=== PATIENT | female | born 1980 | race Caucasian/White ===

== ENCOUNTER 2016-05-29 12:44 | Emergency (ER) | payer OTHER ==
[2016-05-29] MEDS ORDERED: Ibuprofen TAB* 600 MG PO ONE (14:08)
--- NOTE | 2016-05-29 14:13 | UC ---
Knee Pain HPI - HPI Summary HPI Summary: patient slipped on the ice, fell forward and now has pain on the medial and posterior aspect of knee. hard to bear weight. mild swelling, no bruising. happened about 1 hour ago - History of Current Complaint Chief Complaint: UCLowerExtremity Stated Complaint: KNEE INJURY Hx Obtained From: Patient Hx Last Menstrual Period: 05/29/16 ?: No Onset/Duration: Sudden Onset, Lasting Hours Severity Initially: Moderate Severity Currently: Moderate Pain Intensity: 6 Pain Scale Used: 0-10 Numeric Character: Aching, Throbbing Aggravating Factor(s): Movement, Weight Bearing Alleviating Factor(s): Rest Associated Signs And Symptoms: Positive: Swelling Able to Bear Weight: Yes - with pain - Risk Factors Septic Arthritis Risk Factor: Negative Gout Risk Factor: Negative - Allergies/Home Medications Allergies/Adverse Reactions: Allergies Allergy/AdvReac Type Severity Reaction Status Date / Time Erythromycin Allergy Unknown Unknown Verified 06/14/12 08:41 Reaction Details Home Medications: Home Medications Levothyroxine TAB* [Synthroid TAB*] 125 mcg PO 0800 05/29/16 [History Confirmed 05/29/16] PMH/Surg Hx/FS Hx/Imm Hx Previously Healthy: Yes Endocrine History Of: Denies: Diabetes, Thyroid Disease Cardiovascular History Of: Denies: Cardiac Disorders, Hypertension, Congestive Heart Failure Respiratory History Of: Denies: COPD, Asthma, Bronchitis GI/ History Of: Denies: Ulcer Neurological History Of: Reports: Migraine - Surgical History Surgical History: Yes Surgery Procedure, Year, and Place: X 2; T&A - Family History Known Family History: Negative: Cardiac Disease, Hypertension - Social History Alcohol Use: Occasionally Substance Use Type: None Smoking Status (MU): Never Smoked Tobacco Review of Systems Constitutional: Negative Skin: Negative Eyes: Negative ENT: Negative Respiratory: Negative Cardiovascular: Negative Gastrointestinal: Negative Genitourinary: Negative Motor: Negative Neurovascular: Negative Musculoskeletal: Arthralgia, Decreased ROM - right knee, Myalgia Neurological: Negative Psychological: Negative All Other Systems Reviewed And Are Negative: Yes Physical Exam Triage Information Reviewed: Yes Appearance: Well-Appearing, Well-Nourished, Pain Distress Vital Signs: Initial Vital Signs Temp 98.3 F 05/29/16 13:57 Pulse 65 05/29/16 13:57 Resp 18 01/17/17 13:57 BP 131/90 05/29/16 13:57 Pulse Ox 100 05/29/16 13:57 Vital Signs Reviewed: Yes Eye Exam: Normal Eyes: Positive: Conjunctiva Clear ENT Exam: Normal ENT: Positive: Normal ENT inspection, Pharynx normal, TMs normal Dental Exam: Normal Neck exam: Normal Neck: Positive: Supple, Nontender, No Lymphadenopathy Respiratory Exam: Normal Respiratory: Positive: Chest non-tender, Lungs clear, Normal breath sounds Cardiovascular Exam: Normal Cardiovascular: Positive: RRR, No Murmur, Pulses Normal Abdominal Exam: Normal Abdomen Description: Positive: Nontender, No Organomegaly, Soft Bowel Sounds: Positive: Present Musculoskeletal Exam: Normal Musculoskeletal: Positive: No Edema, Strength Limited @ - hard to bear weight, ROM Limited @ - ROM is full but painful, Edema @ - mild swelling on over MCL right knee Neurological Exam: Normal Neurological: Positive: Alert, Muscle Tone Normal Psychological Exam: Normal Skin Exam: Normal Knee Pain Course/Dx - Course Course Of Treatment: hx obtained, exam performed, medication reviewed, xray obtained, motrin given for pain with good relief. mk wrap applied, educated patient on RICE and when to follow up. - Differential Dx/Diagnosis Differential Diagnosis/HQI/PQRI: Cellulitis, Contusion, Dislocation, Sprain, Strain Provider Diagnoses: right MCL sprain, mild Discharge - Discharge Plan Condition: Stable Disposition: HOME Patient Education Materials: Knee Sprain (ED), RICE Therapy (ED) Additional Instructions: Continue to ice, compress and elevated. Advil 400 -600 mg every 4-6 hours. Ice for the next 2 days then switch to heat. rest and stay within pain free activity. Follow up with any increase in pain, swelling or difficulty moving or ambulating.
[2016-05-29 14:32] VITALS: BP 131/90
--- NOTE | 2016-05-29 15:18 | RAD ---
INDICATION: Right knee injury. TECHNIQUE: 4 views of the right knee were obtained. FINDINGS: The bones are in normal alignment. No joint effusion or fracture is seen. Joint spaces appear maintained. IMPRESSION: NO EVIDENCE FOR FRACTURE.
== END 2016-05-29 15:06 | disposition home or self-care (01) ==
LOC: UCEAST 12:44
DX: S83.411A Sprain of medial collateral ligament of right knee, initial encounter (principal); W00.0XXA Fall on same level due to ice and snow, initial encounter; Y93.9 Activity, unspecified; Y92.9 Unspecified place or not applicable; Z88.1 Allergy status to other antibiotic agents
CPT/HCPCS: 99212; A9270-GY; G0463

== ENCOUNTER 2018-05-11 21:22 | Emergency (ER) | payer OTHER ==
[2018-05-11] MEDS ORDERED: PROCHLORPERAZINE INJ 5 MG/ML 2 ML VIAL IV ONE (21:41)
[2018-05-11] MEDS ORDERED: diPHENhydraMINE PO* 25 MG PO ONE (21:42)
[2018-05-11] MEDS ORDERED: NS 0.9% 1000 ML** 1,000 ML IV ONE (21:42)
[2018-05-11] MEDS ORDERED: SUMAtriptan TAB* 50 MG PO ONE (21:42)
[2018-05-11] MEDS ORDERED: Ketorolac INJ* 30 MG/ML 1 ML VIAL IV PUSH ONE (21:42)
--- NOTE | 2018-05-11 22:02 | ED ---
Headache - HPI Summary HPI Summary: 38-year-old female presents with migraine today. She states that is located on left side of head. States is an 8 out of 10 pain. Is not worse headache of life. She says this is the normal location for migraines. She denies any neck pain. She admits to nausea vomiting. She admits to photophobia and phonophobia. 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 She normally take sumatriptan but ran out. Only medical history is a past medical history of migraines. - History Of Current Complaint Chief Complaint: EDHeadache Stated Complaint: HEADACHE Time Seen by Provider: 05/11/18 21:32 Hx Last Menstrual Period: 3 months ago. States regularly irregular - Allergies/Home Medications Allergies/Adverse Reactions: Allergies Allergy/AdvReac Type Severity Reaction Status Date / Time erythromycin base Allergy Unknown Verified 05/11/18 21:46 Reaction Details PMH/Surg Hx/FS Hx/Imm Hx Endocrine/Hematology History: Denies: Hx Diabetes, Hx Thyroid Disease Cardiovascular History: Denies: Hx Congestive Heart Failure, Hx Hypertension Respiratory History: Denies: Hx Asthma, Hx Chronic Obstructive Pulmonary Disease (COPD) GI History: Denies: Hx Ulcer Neurological History: Reports: Hx Migraine - Surgical History Surgery Procedure, Year, and Place: X 2; T&A Infectious Disease History: No Infectious Disease History: Denies: Hx Clostridium Difficile, Hx Hepatitis, Hx Human Immunodeficiency Virus (HIV), Hx of Known/Suspected MRSA, Traveled Outside the in Last 30 Days - Family History Known Family History: Negative: Cardiac Disease, Hypertension - Social History Alcohol Use: Occasionally Substance Use Type: Reports: None Smoking Status (MU): Never Smoked Tobacco Review of Systems Negative: Fever Positive: Photophobia Negative: Chest Pain Negative: Shortness Of Breath Positive: Vomiting, Nausea Positive: Headache All Other Systems Reviewed And Are Negative: Yes Physical Exam Triage Information Reviewed: Yes Vital Signs On Initial Exam: Initial Vitals Temp Pulse Resp BP Pulse Ox 98.4 F 70 18 157/93 99 05/11/18 21:26 05/11/18 21:26 05/11/18 21:26 05/11/18 21:26 05/11/18 21:26 Vital Signs Reviewed: Yes Appearance: Positive: Pain Distress Skin: Positive: Warm, Dry Head/Face: Positive: Normal Head/Face Inspection Eyes: Positive: Normal, EOMI, JULIETA, Conjunctiva Clear ENT: Positive: Normal ENT inspection, Pharynx normal, TMs normal Respiratory/Lung Sounds: Positive: Clear to Auscultation, Breath Sounds Present Cardiovascular: Positive: Normal, RRR Abdomen Description: Positive: Nontender, Soft Bowel Sounds: Positive: Present Musculoskeletal: Positive: Normal Neurological: Positive: Sensory/Motor Intact, Alert, Oriented to Person Place, Time, CN Intact II-III Psychiatric: Positive: Normal Diagnostics - Vital Signs Vital Signs Temp Pulse Resp BP Pulse Ox 05/11/18 21:26 98.4 F 70 18 157/93 99 - Laboratory Lab Statement: Any lab studies that have been ordered have been reviewed, and results considered in the medical decision making process. Re-Evaluation - Re-Evaluation First Eval Re-Evaluation Time: 22:49 Change: Improved Comment: pain improved Headache Course/Dx - Course Course Of Treatment: 38-year-old female presents with migraine today. She states that is located on left side of head. States is an 8 out of 10 pain. Is not worse headache of life. She says this is the normal location for migraines. She denies any neck pain. She admits to nausea vomiting. She admits to photophobia and phonophobia. 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 She normally take sumatriptan but ran out. Only medical history is a past medical history of migraines. On exam normal neuro exam. Photophobia present. gave Toradol Compazine and Benadryl and sumatriptan and migraine resolved. wrote a prescription for sumatriptan. Told to follow with primary. Patient understands agrees with plan. - Diagnoses Differential Diagnosis/HQI/PQRI: Migraine, Tension Headache, Viral Syndrome Provider Diagnoses: Headache Discharge - Sign-Out/Discharge Documenting (check all that apply): Patient Departure - Discharge Plan Condition: Good Disposition: HOME Prescriptions: SUMAtriptan TAB* [Imitrex TAB*] 50 mg PO ONCE #10 tab Patient Education Materials: Migraine Headache (ED) Referrals: [facility] [place] [facility] [place] [facility] [Outside] Additional Instructions: Take Tylenol or ibuprofen for pain every 6 hours take sumatriptan once as needed for migraine Follow up with primary within 5 days Return to ED if develop any new or worsening symptoms - Billing Disposition and Condition Condition: GOOD Disposition: Home
[2018-05-11 23:09] VITALS: BP 120/72
== END 2018-05-11 23:01 | disposition home or self-care (01) ==
LOC: ED 21:22
DX: R51 Headache (principal)
CPT/HCPCS: 96361; 96374; 96375; 99283; A9270-GY; J0780; J1885